=== PATIENT | male | born 1990 ===

== ENCOUNTER 2021-06-27 22:46 | Emergency (ER) | payer OTHER ==
[2021-06-27 23:22] VITALS: BP 123/51
[2021-06-27] MEDS ORDERED: dexAMETHasone 20 MG/5 ML VIAL IM ONE (23:29)
[2021-06-27] MEDS ORDERED: diphenhydrAMINE 25 MG CAP PO ONE (23:29)
[2021-06-27] MEDS ORDERED: FAMOTIDINE 20 MG TAB PO ONE (23:29)
--- NOTE | 2021-06-27 23:31 | Emergency Department Report ---
ED Allergic Reaction HPI - General Chief complaint: Allergic Reaction Stated complaint: ALERGIC REACTION Time Seen by Provider: 06/27/21 23:28 Source: patient Mode of arrival: Ambulatory Limitations: No Limitations - History of Present Illness Initial Comments: Patient is a 31-year-old male who presents emergency room with complaints of allergic reaction that began 2 hours ago. Patient states that he was eating at [employer] when he typically eats and then began to have diffuse hives. Patient states that he has had this happen before and he has had allergy testing performed and they are unsure what he is allergic to he just has nonspecific urticaria at times. He denies any known medication, food, or environmental allergies. He denies any facial swelling, difficulty swallowing, difficulty breathing. He states he has itching all over. He did not take anything for his symptoms prior to arrival. No other past medical history. No allergies to medications. - Related Data Previous Rx's Medication Instructions Recorded Last Taken Type Cetirizine HCl [Zyrtec 10mg tab] 10 mg PO DAILY #10 tablet 06/28/21 Unknown Rx Famotidine [Pepcid] 40 mg PO QHS #10 tablet 06/28/21 Unknown Rx Prednisone [predniSONE 10 mg 10 mg PO .TAPER #1 tab.ds.pk 06/28/21 Unknown Rx (6-Day Pack, 21 Tabs)] Allergies Allergy/AdvReac Type Severity Reaction Status Date / Time No Known Allergies Allergy Unverified 06/27/21 23:21 ED Review of Systems ROS: Stated complaint: ALERGIC REACTION Other details as noted in HPI Comment: All other systems reviewed and negative ED Past Medical Hx - Past Medical History Previous Medical History?: No - Surgical History Past Surgical History?: No - Medications Home Medications: Home Medications Medication Instructions Recorded Confirmed Last Taken Type Cetirizine HCl [Zyrtec 10mg tab] 10 mg PO DAILY #10 tablet 06/28/21 Unknown Rx Famotidine [Pepcid] 40 mg PO QHS #10 tablet 06/28/21 Unknown Rx Prednisone [predniSONE 10 mg 10 mg PO .TAPER #1 tab.ds.pk 06/28/21 Unknown Rx (6-Day Pack, 21 Tabs)] ED Physical Exam - General Limitations: No Limitations General appearance: alert, in no apparent distress - Head Head exam: Present: atraumatic, normocephalic - Eye Eye exam: Present: normal appearance - ENT ENT exam: Present: mucous membranes moist, other (no facial edema, uvula is midline, no uvular edema or deviation) - Respiratory Respiratory exam: Present: normal lung sounds bilaterally. Absent: respiratory distress, wheezes, rales, rhonchi, stridor, chest wall tenderness, accessory muscle use, decreased breath sounds, prolonged expiratory - Cardiovascular Cardiovascular Exam: Present: regular rate, normal rhythm, normal heart sounds. Absent: systolic murmur, diastolic murmur, rubs, gallop - Neurological Exam Neurological exam: Present: alert, oriented X3 - Psychiatric Psychiatric exam: Present: normal affect, normal mood - Skin Skin exam: Present: warm, dry, urticaria (diffusely) ED Course Vital Signs 06/27/21 23:15 Temperature 97.9 F Pulse Rate 68 Respiratory 18 Rate Blood Pressure 123/51 O2 Sat by Pulse 98 Oximetry ED Medical Decision Making - Medical Decision Making Patient is a 31-year-old male who presents emergency room with complaints of allergic reaction that began 2 hours ago. Patient states that he was eating at [employer] when he typically eats and then began to have diffuse hives. Patient states that he has had this happen before and he has had allergy testing performed and they are unsure what he is allergic to he just has nonspecific urticaria at times. He denies any known medication, food, or environmental allergies. He denies any facial swelling, difficulty swallowing, difficulty breathing. He states he has itching all over. He did not take anything for his symptoms prior to arrival. No other past medical history. No allergies to medications. Vitals are normal. On exam patient has diffuse urticaria, no clinical signs of angioedema or anaphylaxis. Patient given medications in the emergency room and with improvement of his symptoms and he was observed without any further complications. Patient given prescription for medications. Advised patient Please take medication as prescribed. Follow-up with a primary care doctor. Return to emergency room for any new or worsening symptoms. Critical care attestation.: If time is entered above; I have spent that time in minutes in the direct care of this critically ill patient, excluding procedure time. ED Disposition Clinical Impression: Urticaria Disposition: HOME / SELF CARE / HOMELESS Is pt being admited?: No Does the pt Need Aspirin: No Condition: Stable Instructions: Hives Additional Instructions: Please take medication as prescribed. Follow-up with a primary care doctor. Return to emergency room for any new or worsening symptoms. Prescriptions: Famotidine [Pepcid] 40 mg PO QHS #10 tablet Prednisone [predniSONE 10 mg (6-Day Pack, 21 Tabs)] 10 mg PO .TAPER #1 tab.ds.pk Cetirizine HCl [Zyrtec 10mg tab] 10 mg PO DAILY #10 tablet Referrals: BREANNE PALMER MD [Staff Physician] - 3-5 Days Forms: Work/School Release Form(ED) Time of Disposition: 00:49 Print Language: KOSOVAN
== END 2021-06-28 00:59 | disposition home or self-care (01) ==
LOC: ED 22:46
DX: L50.9 Urticaria, unspecified (principal)
CPT/HCPCS: 96372; 99282; J1100